=== PATIENT | female | born 1965 | race Caucasian/White ===

== ENCOUNTER 2018-08-19 23:13 | Emergency (ER) | payer OTHER ==
--- NOTE | 2018-08-20 00:33 | ED Physician Documentation ---
Lower Extremity Injury - HPI Stated Complaint: Fall to Rt knee with "pop" and pain Chief Complaint: Lower Extremity Injury Additional Information: Patient presents to ED with right knee pain after slipping and falling on ice tonight. Onset: hours (1) Where: home Severity: mild Context: fall, twist Associated Symptoms:: tingling Modifying Factors:: none - ROS CONST: no problems CVS/RESP: none GI/: denies: nausea, vomiting MS/SKIN/LYMPH: none - PAST HX Past History: none Allergies/Adverse Reactions: Allergies Allergy/AdvReac Type Severity Reaction Status Date / Time ampicillin Allergy Verified 08/19/18 23:39 Penicillins Allergy Verified 08/19/18 23:39 Sulfa (Sulfonamide Allergy Verified 08/19/18 23:39 Antibiotics) Home Medications: Ambulatory Orders Medication Instructions Recorded NK 08/19/18 - SOCIAL HX Smoking History: non-smoker Alcohol Use: none Drug Use: none - FAMILY HX Family History: none - VITAL SIGNS Vital Signs: Vital Signs Temp Pulse Resp BP Pulse Ox 98.9 F 72 16 141/73 99 08/19/18 23:14 08/19/18 23:14 08/19/18 23:14 08/19/18 23:14 08/19/18 23:14 ED Results Lab/Radiology - Lab Results Lab Results: Report Submission Date: Aug 20, 2018 12:28:05 AM ETYMOLOGY TEACHER Patient Study Name: PABLO JOY Date: Aug 19, 2018 11:40:59 PM ETYMOLOGY TEACHER Modality Type: DX Gender: F Description: KNEE 3 VIEWS : 63 Institution: [facility] Physician: JANET ADAM Right knee 3 views Clinical history pain Technique AP lateral sunrise Findings: There is mild medial joint space narrowing and patellofemoral joint narrowing. No fracture joint effusion is identified. Impression: Osteoarthritis Electronically signed on Aug 20, 2018 12:28:05 AM ETYMOLOGY TEACHER by: Jose Daniel Gonzalez - Orders Orders: ED Orders Category Date Time Status KNEE 3 VIEWS [RAD] Stat Exams 08/19/18 23:36 Taken Lower Extremities Injury Phy - Physical Exam General Appearance: no acute distress, alert Hips: bilateral hip: non-tender Legs: bilateral: non-tender Knees: right: non-tender, normal inspection, soft tissue tenderness (patellar area) Ankle: bilateral: non-tender, normal inspection Foot: bilateral foot: non-tender, normal inspection Ligaments: No: pain on anterior drawer, laxity on anterior drawer Gait: normal Neuro/Vascular/Tendon: no vascular compromise, motor nml Head/ENT: nml inspection Neck/Back: nml inspection Resp/CVS: chest non-tender, breath sounds nml Abdomen: non-tender Discharge Clincal Impression: Right knee injury Qualifiers: Encounter type: initial encounter Qualified Code(s): S89.91XA - Unspecified injury of right lower leg, initial encounter Referrals: Flavia Richard MD [Primary Care Provider] - 2 Days Additional Instructions: 1. Apply Ice to affected area 2. Tylenol and/or ibuprofen as needed for pain 3. Follow up with PCP within 1 week 4. Return to ER with new or worsening Condition: Stable Disposition: 01 HOME, SELF-CARE Decision to Admit: NO Date of Decison to Admit: 08/20/18 Decision Time: 00:37
[2018-08-20 00:59] VITALS: BP 138/69
--- NOTE | 2018-08-20 06:19 | Diagnostic Imaging Report ---
JANET ADAM [facility] [id number] [address] [facility] [address] [place] [address]. [phone] Report Submission Date: Aug 20, 2018 12:28:05 AM TREE SAPPER Patient Study Name: PABLO JOY Date: Aug 19, 2018 11:40:59 PM TREE SAPPER Modality Type: DX Gender: F Description: KNEE 3 VIEWS : 63 Institution: [facility] Physician: JANET ADAM Right knee 3 views Clinical history pain Technique AP lateral sunrise Findings: There is mild medial joint space narrowing and patellofemoral joint narrowing. No fracture joint effusion is identified. Impression: Osteoarthritis Electronically signed on Aug 20, 2018 12:28:05 AM TREE SAPPER by: Jose Daniel MAYORGA
== END 2018-08-20 00:45 | disposition home or self-care (01) ==
LOC: ED 23:13
DX: S89.91XA Unspecified injury of right lower leg, initial encounter (principal); W00.0XXA Fall on same level due to ice and snow, initial encounter; Y93.9 Activity, unspecified; Y92.009 Unspecified place in unspecified non-institutional (private) residence as the place of occurrence of the external cause
CPT/HCPCS: 29530; 73562; 99282; 99283